=== PATIENT | female | born 1960 | race Caucasian/White ===

== ENCOUNTER 2018-01-08 06:24 | Emergency (ER) | payer OTHER ==
[2018-01-08 06:34] VITALS: RESP 16; TEMP 97.3
[2018-01-08] MEDS ORDERED: NS 1,000 ML IV ONE (06:51)
[2018-01-08 07:10] LABS: PLATELET COUNT 223 10^3/uL (150-400)
--- NOTE | 2018-01-08 07:15 | EDPHY ---
H & P Stated Complaint: c/o diarrhea since noon yesterday, no other sx Time Seen by Provider: 01/08/18 07:07 HPI/ROS: CHIEF COMPLAINT: Traveler's diarrhea HISTORY OF PRESENT ILLNESS: The patient presents to the ED with complaints of traveler's diarrhea. She recently traveled to [place] and [place]. She return to the night and states yesterday and developed multiple episodes of nonbloody diarrhea. She has no complaints of abdominal pain. She denies fever, chills, rash. She denies significant past medical history. She has no additional acute complaints. REVIEW OF SYSTEMS: A comprehensive 10 point review of systems is otherwise negative aside from elements mentioned in the history of present illness. Source: Patient Exam Limitations: No limitations - Medical/Surgical History Hx Asthma: No Hx Chronic Respiratory Disease: No Hx Diabetes: No Hx Cardiac Disease: No Hx Renal Disease: No Hx Cirrhosis: No Hx Alcoholism: No Hx HIV/AIDS: No Hx Splenectomy or Spleen Trauma: No Other PMH: endometriosis surg, tonsillectomy/adenoidectomy, d and c - Social History Smoking Status: Former smoker - Physical Exam Exam: General Appearance: Alert, no distress Eyes: Pupils equal and round no pallor or injection ENT, Mouth: Mucous membranes moist Respiratory: There are no retractions, lungs are clear to auscultation Cardiovascular: Regular rate and rhythm Gastrointestinal: Soft abdomen, benign, normal bowel sounds Neurological: 5/5 strength noted all 4 extremities Skin: Warm and dry, no rashes Musculoskeletal: Neck is supple nontender Extremities: symmetrical, full range of motion Constitutional: Initial Vital Signs Temperature (C) 36.3 C 01/08/18 06:30 Heart Rate 74 01/08/18 06:30 Respiratory Rate 16 01/08/18 06:30 Blood Pressure 131/97 H 01/08/18 06:30 O2 Sat (%) 94 01/08/18 06:30 O2 Delivery Mode Room Air Allergies/Adverse Reactions: No Known Allergies Allergy (Unverified 01/08/18 06:34) Home Medications: Medication Instructions Recorded Azithromycin 500 mg PO DAILY #2 tablet 01/08/18 Azithromycin 500 mg PO DAILY #2 tablet 01/08/18 Medical Decision Making ED Course/Re-evaluation: The patient presents to the ED which travels diarrhea. She is afebrile nontoxic and well-appearing. The patient did receive 1 L of normal saline for dehydration. The patient will be given a prescription for azithromycin. 500 mg daily x3 days. She is discharged home with customary aftercare instructions and return precautions. The patient's laboratory studies are within normal limits. She has no evidence of significant leukocytosis or metabolic derangement. The patient received her 1st dose of azithromycin in the emergency department. She will be advised to use Imodium as needed for additional management of her symptoms. She is discharged home with customary aftercare instructions and return precautions. - Data Points Laboratory Results: Laboratory Results 01/08/18 07:02 01/08/18 07:02 01/08/18 01/08/18 07:02 07:02 WBC 5.41 10^3/uL 10^3/uL (3.80-9.50) RBC 5.27 10^6/uL 10^6/uL (4.18-5.33) Hgb 15.7 g/dL g/dL (12.6-16.3) Hct 46.4 % % (38.0-47.0) MCV 88.0 fL fL (81.5-99.8) MCH 29.8 pg pg (27.9-34.1) MCHC 33.8 g/dL g/dL (32.4-36.7) RDW 13.3 % % (11.5-15.2) Plt Count 223 10^3/uL 10^3/uL (150-400) MPV 10.4 fL fL (8.7-11.7) Neut % (Auto) 53.9 % % (39.3-74.2) Lymph % (Auto) 32.3 % % (15.0-45.0) [place] % (Auto) 12.0 % % (4.5-13.0) Eos % (Auto) 0.9 % % (0.6-7.6) Baso % (Auto) 0.7 % % (0.3-1.7) Nucleat RBC Rel Count 0.0 % % (0.0-0.2) Absolute Neuts (auto) 2.91 10^3/uL 10^3/uL (1.70-6.50) Absolute Lymphs (auto) 1.75 10^3/uL 10^3/uL (1.00-3.00) Absolute Monos (auto) 0.65 10^3/uL 10^3/uL (0.30-0.80) Absolute Eos (auto) 0.05 10^3/uL 10^3/uL (0.03-0.40) Absolute Basos (auto) 0.04 10^3/uL 10^3/uL (0.02-0.10) Absolute Nucleated RBC 0.00 10^3/uL 10^3/uL (0-0.01) Immature Gran % 0.2 % % (0.0-1.1) Immature Gran # 0.01 10^3/uL 10^3/uL (0.00-0.10) Sodium 146 mEq/L H mEq/L (135-145) Potassium 4.0 mEq/L mEq/L (3.5-5.2) Chloride 108 mEq/L mEq/L (97-110) Carbon Dioxide 22 mEq/l mEq/l (22-31) Anion Gap 16 mEq/L mEq/L (8-16) BUN 10 mg/dL mg/dL (7-23) Creatinine 0.9 mg/dL mg/dL (0.6-1.0) Estimated GFR > 60 Glucose 84 mg/dL mg/dL (70-100) Calcium 10.6 mg/dL H mg/dL (8.5-10.4) Total Bilirubin Cancelled Conjugated Bilirubin Cancelled Unconjugated Bilirubin Cancelled AST Cancelled ALT Cancelled Alkaline Phosphatase Cancelled Total Protein Cancelled Albumin Cancelled Lipase Cancelled Medications Given: Discontinued Medications Sodium Chloride (Ns) 1,000 mls @ 0 mls/hr IV EDNOW ONE; Wide Open PRN Reason: Protocol Stop: 01/08/18 06:52 Last Admin: 01/08/18 07:01 Dose: 1,000 mls Departure - Departure Disposition: Home, Routine, Self-Care Clinical Impression: Travelers' diarrhea Condition: Good Instructions: Traveler's Diarrhea (ED) Additional Instructions: 1. Take antibiotic once daily for 2 more days. 2. Return to the ED for severe pain, fever, vomiting or other concerns. 3. You may use Imodium as needed Referrals: NONE *PRIMARY CARE P,. [Primary Care Provider] - As per Instructions Prescriptions: Azithromycin 500 mg PO DAILY #2 tablet Azithromycin 500 mg PO DAILY #2 tablet
[2018-01-08] MEDS ORDERED: AZITHROMYCIN 250 MG TAB PO ONE (07:19)
[2018-01-08 07:51] VITALS: BP 128/93; PULSE 67; O2SAT 96
== END 2018-01-08 08:02 | disposition home or self-care (01) ==
DX: A09 Infectious gastroenteritis and colitis, unspecified (principal); E86.9 Volume depletion, unspecified; Z87.891 Personal history of nicotine dependence